=== PATIENT | female | born 1995 | race Caucasian/White ===

== ENCOUNTER 2024-02-01 13:06 | Outpatient (AMB) | payer BC, SELFPAY ==
[2024-02-01 13:15] VITALS: BP 128/70; PULSE 89; O2SAT 100; BMI 34.1
--- NOTE | 2024-02-01 13:15 | MHC.OFFVIS ---
Vital Signs 02/01/24 13:15 Height 5 ft 5 in Weight 205 lb BMI 34.1 BP 128/70 Blood Pressure Location Lt brachial Position Sitting Pulse 89 Pulse Source Pulse Oximeter Pulse Oximetry (%) 100 Oxygen Delivery Method Room Air Intake Visit Reasons: Somnolence Roving Tester Laboratory Required: No Allergies Penicillins Adverse Reaction (Severe, Verified 02/01/24 13:19) Hives Sulfa Drugs Adverse Reaction (Severe, Uncoded 02/01/24 13:19) Hives HPI Comments Details: The patient is here for pulmonary evaluation. The patient is 28-year-old woman with a known history of asthma presenting with worsening daytime drowsiness. 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 As a child she did require surgery. It did help some of that point but still had some difficulty opening her mouth. 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 She has significant snoring documented by her significant other. The patient also has headaches in the morning. She wakes up tired with an elevated [place] score of 11/24. The patient has never had a sleep study. At this point she needs a sleep study because she likely has significant sleep apnea due to her anatomy. In addition to that she does have history of asthma. She does have a rescue inhaler does not required any maintenance medication at this time. will plan to request a home sleep study at this time. [facility] Medical History (Updated 02/01/24 @ 20:40 by Kenny Zhao MD) Insomnia Asthma VALENTIN (obstructive sleep apnea) Social History (Updated 02/01/24 @ 13:21 by ZIYAD Liriano) Patient Tobacco Use Status: Never used Tobacco Review of Systems Const Reports daytime sleepiness, Reports difficulty sleeping, Reports headache(s) and Reports snoring Eyes Reports no additional complaints ENT Reports headache(s) Card Denies chest pain Resp Reports snoring and Denies wheezing GI Reports no additional complaints Musc Reports no additional complaints Skin/Breast Denies rash Neuro Reports no additional complaints and Reports headache(s) Aller/Immun Denies wheezing Physical Exam Vital Signs: Last Vital Signs Pulse 89 02/01/24 13:15 BP 128/70 02/01/24 13:15 Pulse Ox 100 02/01/24 13:15 Oxygen Delivery Method Room Air 02/01/24 13:15 BMI result Body Mass Index 34.1 Const General: healthy appearing HEENT Head: Yes normocephalic Mouth: other (Rethronathia 2-3 mm; mallampati 3) Neck Neck: Yes supple Chest Chest palpation & inspection: normal inspection of the chest Resp Effort & Inspection: normal respiratory effort Auscultation: clear to auscultation bilaterally Cardio Heart sounds: S1 normal heart sound present, S2 normal heart sound present and Murmur heart sound present systolic soft and I/ GI Palpation (GI): Soft to palpation Skin General skin exam: no rashes or lesions noted Extrem General: Yes no clubbing, cyanosis or edema Assessment & Plan Assessment & Plan (1) VALENTIN (obstructive sleep apnea): Code(s): G47.33 - Obstructive sleep apnea (adult) (pediatric) Category: Medical (2) Asthma: Code(s): J45.909 - Unspecified asthma, uncomplicated Category: Medical Qualifiers: Asthma severity: mild Asthma persistence: intermittent Asthma complication type: uncomplicated Qualified Code(s): J45.20 - Mild intermittent asthma, uncomplicated (3) Insomnia: Code(s): G47.00 - Insomnia, unspecified Category: Medical Qualifiers: Insomnia type: primary Qualified Code(s): F51.01 - Primary insomnia Plan Home sleep study consider sleep aid CHELSEY as needed F/U 2-3 months Orders: Orders RT home sleep study Today G47.33 - Obstructive sleep apnea (adult) (pediatric)
== END 2024-02-01 13:39 | disposition home or self-care (01) ==
LOC: HO.HPS 13:07
PROVIDERS: PCP Physician Assistant Medical; Visit Provider Hospitalist
DX: G47.33 Obstructive sleep apnea (adult) (pediatric) (principal); J45.20 Mild intermittent asthma, uncomplicated; F51.01 Primary insomnia
CPT/HCPCS: 99204

== ENCOUNTER → 2024-02-01 13:07 | Outpatient (BNVA) | payer BC, SELFPAY | PROVIDERS: PCP Physician Assistant Medical; Visit Provider Hospitalist ==

== ENCOUNTER → 2024-03-10 14:45 | Outpatient (REF) | payer BC, SELFPAY | LOC: HO.SL 14:45 | PROVIDERS: PCP Family Medicine; Visit Provider Hospitalist | DX: G47.33 Obstructive sleep apnea (adult) (pediatric) (principal) | CPT/HCPCS: 95806 ==

== ENCOUNTER → 2024-03-10 14:54 | Outpatient (BNV) | payer BC, SELFPAY | PROVIDERS: PCP Family Medicine; Visit Provider Internal Medicine | DX: G47.10 Hypersomnia, unspecified (principal) | CPT/HCPCS: 95806 ==

== ENCOUNTER 2025-02-01 06:28 | Outpatient (REF) | payer BC, SELFPAY ==
--- OUTSIDE RECORDS SUMMARY | 2025-02-01 06:32 | XMS_ITS ---
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
--- OUTSIDE RECORDS SUMMARY | 2025-02-01 06:32 | XMS_ITS | Patient Health Record ---
Author Organization [facility] Address [address] [place] [address] Care Team Providers Care Customer Contact Specialist Name Role Phone SUYAPA SANDOVAL Unavailable [phone] ALLERGIES Allergen (clinical drug ingredient) Drug/Non Drug Allergy documented on EMR Reaction Allergy Type Onset Date Status Penicillin hives Drug Allergy Active Substance with sulfonamide structure and antibacterial mechanism of action (substance) Sulfa Antibiotics hives Drug Allergy Active RESULTS Component Value Reference Range Notes VITAMIN D 25 HYDROXY Reviewed date:08/29/2024 07:57:14 AM Interpretation: Performing Lab: Notes/Report: Vit D, 25-Hydroxy 17.2 30.0-80.0 ng/mL THYROXINE FREE Reviewed date:08/29/2024 07:57:14 AM Interpretation: Performing Lab: Notes/Report: Free T4 1.38 0.70-1.80 ng/dL THYROID STIMULATING HORMONE Reviewed date:08/29/2024 07:57:14 AM Interpretation: Performing Lab: Notes/Report: TSH 1.71 0.40-4.00 mcIU/mL TRIIODOTHYRONINE FREE Reviewed date:08/29/2024 07:57:14 AM Interpretation: Performing Lab: Notes/Report: T3, Free 294 230-420 pcg/dL VITAMIN B12 Reviewed date:08/29/2024 07:56:45 AM Interpretation: Performing Lab: Notes/Report: Vitamin B-12 379 250-900 pcg/mL THYROGLOBULIN ANTIBODY Reviewed date:09/05/2024 08:01:27 AM Interpretation: Performing Lab: Notes/Report: Antithyroglobulin Ab <15.0 <=60.0 I Unit/mL THYROID PEROXIDASE ANTIBODY Reviewed date:09/05/2024 08:01:27 AM Interpretation: Performing Lab: Notes/Report: Thyroid Peroxidase Ab 110.0 <=60.0 I Unit/mL XR HAND 3+ VIEWS RIGHT Reviewed date:09/29/2024 02:39:06 PM Interpretation: Performing Lab: Notes/Report: Note See Note [facility], a member of [facility] Patient Name: JENNIFER GEORGE Date of : 1995 Reason for Exam: right hand pain Exam Date: 09/28/2024 [id number] EST Report Status: Final Ordering Provider: SABINA GARCIA PCP: CHANEL GARNER Date of Visit:09/28/2024 Reason for visit: ri ght hand pain Views: AP, lateral, oblique right hand Comparison: None Findings: No fractur es, dislocation or lytic lesions. No significant arthritis. No calcifications Impression: Normal r ight hand radiograph REASON FOR REFERRAL No Information MEDICATIONS Medication SIG (Take, Route, Frequency, Duration) Notes Start Date End Date Status Albuterol Sulfate HFA 108 (90 Base) MCG/ACT Inhalation for 90 Days Active Drospiren-Eth Estrad-Levomefol 3-0.02-0.451 MG TAKE 1 TABLET BY MOUTH EVERY DAY Oral for 84 Days Active buPROPion HCl ER (XL) 300 MG TAKE 1 TABL ET BY MOUTH EVERY DAY IN THE MORNING FOR 90 DAYS for 90 days Active buPROPion HCl ER (XL) 150 MG TAKE 1 TABL ET BY MOUTH EVERY DAY IN THE MORNING FOR 90 DAYS for 90 days Active Levothyroxine Sodium 75 MCG TAKE 1 TABLE T BY MOUTH EVERY DAY IN THE MORNING ON EMPTY STOMACH for 90 Active Cetirizine HCl 10 MG 1 tablet Orally Onc e a day Active SOCIAL HISTORY Tobacco Use: Social History Observation Description Date Details (start date - stop date) Never Smoker NA - NA Sex Assigned At : Social History Observation Description Sex Assigned At Unknown Tobacco Use/Smoking Question Answer Notes Are you a nonsmoker Alcohol Screen (Audit-C) Question Answer Notes Did you have a drink contain ing alcohol in the past year? Yes How often did you have a dri nk containing alcohol in the past year? 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 ETOH: Rare/social Drug Use: none PROBLEMS Problem Type ICD Code Onset Dates Problem Status W/U Status Risk SNOMED Code Notes Problem Vitamin D deficiency, unspecified (E55.9) Active confirmed Vitamin D deficiency (78667344) Problem Hyperlipidemia, unspecified (E78.5) Active confirmed Hyperlipidemia (83962463) Problem Anxiety (F41.9) Active confirmed Anxiet y (62748907) Problem Adult general medical exam (Z00.00) Active confirmed Adult health examination (837744515) Problem Hypothyroidism, unspecified type (E03.9) Active confirmed 59474785 Problem Seasonal allergies (J30.2) Active confirmed Seasonal allerg y (621441943) Problem Vitamin D deficiency (E55.9) Active confirmed 30638595 Problem Diabetes mellitus screening (Z13.1) Active confirmed Diabetes mellit us screening (301772728) Problem Obesity (BMI 30-39.9) (E66.9) Active confirmed Obesity (399038055) Problem Sleep apnea in adult (G47.30) Active confirmed Sleep apnea (67176236) Problem Anemia due to vitamin B12 deficiency, unspecified B12 deficiency type (D51.9) Active confirmed 80551503 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 Juan's disease (77432436) 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) Active confirmed Jaun's thyroiditis (32196134) VITAL SIGNS Heart Rate 99 /min 01/13/2025 Blood pressure diastolic 80 mm Hg 01/13/2025 Oximetry 99 % 01/13/2025 Height 65 in 01/13/2025 Blood pressure systolic 126 mm Hg 01/13/2025 Weight 216.4 lbs 01/13/2025 BMI 36.01 kg/m2 01/13/2025 Encounters Encounter Location Date Provider Diagnosis [facility] [address] [place] [address] 03/04/2024 SUYAPA SANDOVAL [facility] [address] [place] [address] 08/01/2024 SUYAPA SANDOVAL [facility] [address] [place] [address] 12/09/2024 SUYAPA SANDOVAL [facility] [address] [place] [address] 08/26/2024 SUYAPA SANDOVAL Headache, unspecifie d R51.9 ; Hypothyroidism, unspecified type E03.[address] [facility] [address] [facility] [address] [place] [address] 01/13/2025 SUYAPA SANDOVAL Adult general medica l exam Z00.00 ; Hyperlipidemia, unspecified E78.5 ; Vitamin D deficiency, unspecified E55.9 ; Hypothyroidism, unspecified type E03.9 ; Diabetes mellitus screening Z13.1 and Anemia due to vitamin B12 deficiency, unspecified B12 deficiency type D51.[address] [facility] [place] [address] 07/05/2024 SUYAPA LORI [address] [place] [address] 09/19/[address] [facility] [address] [place] [address] 09/21/[address] [facility] [address] [place] [address] 12/07/2024 SUYAPA RUANOA [address] [place] [address] 12/07/[address] [facility] [address] [place] [address] 06/01/[address] [facility] [address] [place] [address] 06/23/[address] [facility] [address] [place] [address] 07/05/[address] [facility] [address] [place] [address] 07/05/[address] [facility] [address] [place] [address] 07/05/[address] [facility] [address] [place] [address] 07/05/[address] [facility] [address] [place] [address] 07/18/[address] [facility] [address] [place] [address] 08/26/2024 SUYAPA SANDOVAL Hypothyroidism, unspecified type E03.9 ; Headache, unspecified R51.9 ; Low iron E61.1 and Anemia due to vitamin B12 deficiency, unspecified B12 deficiency type D51.9 [facility] [address] [facility] [address] 09/19/2024 SUYAPA SANDOVAL [facility] [address] [facility] [address] 09/28/2024 SUYAPA SANDOVAL [facility] [address] [facility] [address] 09/28/2024 SUYAPA SANDOVAL [facility] [address] [facility] [address] 11/02/2024 SUYAPA SANDOVAL [facility] [address] [facility] [place] [address] 12/17/2024 SUYAPA SANDOVAL ASSESSMENTS Encounter Date Diagnosis Assessment Notes Treatment Notes Treatment Clinical Notes Section Notes 01/13/2025 Hyperlipidemia , unspecified (ICD-10 - E78.5) #Adult general medical exam: Reviewed medical history, hospitalizations, surgical history, and medications. All UTD. #Hyperlipidemia: Lipid panel will be rechecked in 6-12 months or sooner if clinical concerns arise. If lifestyle interventions are insufficient, pharmacologic therapy may be considered based on cardiovascular risk factors. #Obesity: Weight management consult has been scheduled. #Hypothyroidism: Will recheck labs. #Vaccines: UTD #Vitamin D Deficiency Will recheck labs. Patient seen and examined. Comprehensive discussion was done on the following. 1. Nutrition: It is important to follow a healthy diet based on lots of vegetables and legumes and good fat. Avoid processed food and processed carbohydrates. Learn to prepare your own meals. Learn to read labels and avoid high fructose corn syrup, processed chemicals added to increase shelf life and preprepared meals. Avoid fast foods. Learn to eat slowly and plan meals for a week. Try to count calories and be mindful off daily calorie intake. Get into the habit of keeping an eye on your weight by using an appropriate scale. Learn to log exercise and discussed fitness Apps like [employer] which can help keep log off calories taken versus calories burned. Local food should be preferred. Discussed Dirty Dozen Versus Clean Fifteen. Discussed healthy supplements like fish oil, Tumeric, Curcumin, Melatonin, Resveratrol, Probiotics, Vitamin-D, Alpha-Lipoic acid, Vitamin-D and coconut oil. 2. It is important to exercise regularly. Is a good habit to walk at least 30-45 minutes a day. Gentle weightlifting with standard precautions to protect the back. Finding activity like cycling or hiking and get into the habit of engaging in it. Stretching before and after the exercises important. It is also important to contact me if there are any problems like shortness of breath, chest pain, back pain and joint or muscle pain associated with the exercise. 3. Discussed age appropriate screening guidelines. Colonoscopy needs to start at age 50 with stool for occult blood as appropriate. There is a new test that can test for genetic abnormalities in the stool sample. This would not replace a colonoscopy but could be used as a screening tool for patients who do not want a colonoscopy. We discussed the importance of early detection of colon cancer. 4. Discussed current guidelines with respect to breast examination, mammogram and pap smear for early detection of breast and cervical cancer. Patient advised to follow up with these appointments. 5. Discussed safe driving and no use of smart phone while driving 6. Age-appropriate immunizations were discussed. A tetanus booster is needed every 10 years. Flu vaccine is recommended every year just before the start of the flu season. Shingles vaccine is recommended after age 50 but not all insurances cover it.Pneumonia vaccine is given after age 65 unless there are certain comorbidities for which it is started earlier. 7. Diagnostic labs were discussed. These could include CBC CMP and lipids with fasting blood glucose and insulin levels. Vitamin D and hemoglobin A1c testing might be appropriate. Case discussed with collaborating physician Sadie Garner who reviewed the assessment and plan. Chart, medications, labs, vital signs reviewed. Dictation was accomplished with the use of [employer] voice recognition software, prone to medical misidentifications and grammatical errors. This is unintentional and the practitioner does try to identify and correct these, but some could still be present. Please do not hesitate to contact practitioner for clarification. All questions answered to patients satisfaction. Patient verbalized understanding of diagnosis and treatments explained. To call sooner prior to next visit it any questions/concerns arise. 01/13/2025 Adult general medical exam (ICD-10 - Z00.00) #Adult general medical exam: Reviewed medical history, hospitalizations, surgical history, and medications. All UTD. #Hyperlipidemia: Lipid panel will be rechecked in 6-12 months or sooner if clinical concerns arise. If lifestyle interventions are insufficient, pharmacologic therapy may be considered based on cardiovascular risk factors. #Obesity: Weight management consult has been scheduled. #Hypothyroidism: Will recheck labs. #Vaccines: UTD #Vitamin D Deficiency Will recheck labs. Patient seen and examined. Comprehensive discussion was done on the following. 1. Nutrition: It is important to follow a healthy diet based on lots of vegetables and legumes and good fat. Avoid processed food and processed carbohydrates. Learn to prepare your own meals. Learn to read labels and avoid high fructose corn syrup, processed chemicals added to increase shelf life and preprepared meals. Avoid fast foods. Learn to eat slowly and plan meals for a week. Try to count calories and be mindful off daily calorie intake. Get into the habit of keeping an eye on your weight by using an appropriate scale. Learn to log exercise and discussed fitness Apps like [employer] which can help keep log off calories taken versus calories burned. Local food should be preferred. Discussed Dirty Dozen Versus Clean Fifteen. Discussed healthy supplements like fish oil, Tumeric, Curcumin, Melatonin, Resveratrol, Probiotics, Vitamin-D, Alpha-Lipoic acid, Vitamin-D and coconut oil. 2. It is important to exercise regularly. Is a good habit to walk at least 30-45 minutes a day. Gentle weightlifting with standard precautions to protect the back. Finding activity like cycling or hiking and get into the habit of engaging in it. Stretching before and after the exercises important. It is also important to contact me if there are any problems like shortness of breath, chest pain, back pain and joint or muscle pain associated with the exercise. 3. Discussed age appropriate screening guidelines. Colonoscopy needs to start at age 50 with stool for occult blood as appropriate. There is a new test that can test for genetic abnormalities in the stool sample. This would not replace a colonoscopy but could be used as a screening tool for patients who do not want a colonoscopy. We discussed the importance of early detection of colon cancer. 4. Discussed current guidelines with respect to breast examination, mammogram and pap smear for early detection of breast and cervical cancer. Patient advised to follow up with these appointments. 5. Discussed safe driving and no use of smart phone while driving 6. Age-appropriate immunizations were discussed. A tetanus booster is needed every 10 years. Flu vaccine is recommended every year just before the start of the flu season. Shingles vaccine is recommended after age 50 but not all insurances cover it.Pneumonia vaccine is given after age 65 unless there are certain comorbidities for which it is started earlier. 7. Diagnostic labs were discussed. These could include CBC CMP and lipids with fasting blood glucose and insulin levels. Vitamin D and hemoglobin A1c testing might be appropriate. Case discussed with collaborating physician Sadie Garner who reviewed the assessment and plan. Chart, medications, labs, vital signs reviewed. Dictation was accomplished with the use of [employer] voice recognition software, prone to medical misidentifications and grammatical errors. This is unintentional and the practitioner does try to identify and correct these, but some could still be present. Please do not hesitate to contact practitioner for clarification. All questions answered to patients satisfaction. Patient verbalized understanding of diagnosis and treatments explained. To call sooner prior to next visit it any questions/concerns arise. 08/26/2024 Hypothyroidism , unspecified type (ICD-10 - E03.9) 08/26/2024 Hypothyroidism , unspecified type (ICD-10 - E03.9) Jennifer is a 28 year old female for follow up #Juan Disease: TSH/T3/4 normal. Check thyroid US. #Anxiety: Buproprion HCL extended release tab 450 mg po daily # Obesity: Lost 20 lbs since last visit. Congratulated and encouraged to continue # Headaches. ? Menstural or VALENTIN. Declines sleep study at this time. Will try Tompamax 25 mg HS. Discussed possible sleepiness and inc risk of kidney stones Case discussed with collaborating physician Sadie Garner who reviewed the assessment and plan. Chart, medications, labs, vital signs reviewed. Dictation was accomplished with the use of [employer] voice recognition software, prone to medical misidentifications and grammatical errors. This is unintentional and the practitioner does try to identify and correct these, but some could still be present. Please do not hesitate to contact practitioner for clarification. All questions answered to patients satisfaction. Patient verbalized understanding of diagnosis and treatments explained. To call sooner prior to next visit it any questions/concerns arise. 08/26/2024 Headache, unspecified (ICD-10 - R51.9) Jennifer is a 28 year old female for follow up #Juan Disease: TSH/T3/4 normal. Check thyroid US. #Anxiety: Buproprion HCL extended release tab 450 mg po daily # Obesity: Lost 20 lbs since last visit. Congratulated and encouraged to continue # Headaches. ? Menstural or VALENTIN. Declines sleep study at this time. Will try Tompamax 25 mg HS. Discussed possible sleepiness and inc risk of kidney stones Case discussed with collaborating physician Sadie Garner who reviewed the assessment and plan. Chart, medications, labs, vital signs reviewed. Dictation was accomplished with the use of [employer] voice recognition software, prone to medical misidentifications and grammatical errors. This is unintentional and the practitioner does try to identify and correct these, but some could still be present. Please do not hesitate to contact practitioner for clarification. All questions answered to patients satisfaction. Patient verbalized understanding of diagnosis and treatments explained. To call sooner prior to next visit it any questions/concerns arise. 08/26/2024 Headache, unspecified (ICD-10 - R51.9) 08/26/2024 Anxiety (ICD-10 - F41.9) Jennifer is a 28 year old female for follow up #Juan Disease: TSH/T3/4 normal. Check thyroid US. #Anxiety: Buproprion HCL extended release tab 450 mg po daily # Obesity: Lost 20 lbs since last visit. Congratulated and encouraged to continue # Headaches. ? Menstural or VALENTIN. Declines sleep study at this time. Will try Tompamax 25 mg HS. Discussed possible sleepiness and inc risk of kidney stones Case discussed with collaborating physician Sadie Garner who reviewed the assessment and plan. Chart, medications, labs, vital signs reviewed. Dictation was accomplished with the use of [employer] voice recognition software, prone to medical misidentifications and grammatical errors. This is unintentional and the practitioner does try to identify and correct these, but some could still be present. Please do not hesitate to contact practitioner for clarification. All questions answered to patients satisfaction. Patient verbalized understanding of diagnosis and treatments explained. To call sooner prior to next visit it any questions/concerns arise. 01/13/2025 Vitamin D deficiency, unspecified (ICD-10 - E55.9) #Adult general medical exam: Reviewed medical history, hospitalizations, surgical history, and medications. All UTD. #Hyperlipidemia: Lipid panel will be rechecked in 6-12 months or sooner if clinical concerns arise. If lifestyle interventions are insufficient, pharmacologic therapy may be considered based on cardiovascular risk factors. #Obesity: Weight management consult has been scheduled. #Hypothyroidism: Will recheck labs. #Vaccines: UTD #Vitamin D Deficiency Will recheck labs. Patient seen and examined. Comprehensive discussion was done on the following. 1. Nutrition: It is important to follow a healthy diet based on lots of vegetables and legumes and good fat. Avoid processed food and processed carbohydrates. Learn to prepare your own meals. Learn to read labels and avoid high fructose corn syrup, processed chemicals added to increase shelf life and preprepared meals. Avoid fast foods. Learn to eat slowly and plan meals for a week. Try to count calories and be mindful off daily calorie intake. Get into the habit of keeping an eye on your weight by using an appropriate scale. Learn to log exercise and discussed fitness Apps like [employer] which can help keep log off calories taken versus calories burned. Local food should be preferred. Discussed Dirty Dozen Versus Clean Fifteen. Discussed healthy supplements like fish oil, Tumeric, Curcumin, Melatonin, Resveratrol, Probiotics, Vitamin-D, Alpha-Lipoic acid, Vitamin-D and coconut oil. 2. It is important to exercise regularly. Is a good habit to walk at least 30-45 minutes a day. Gentle weightlifting with standard precautions to protect the back. Finding activity like cycling or hiking and get into the habit of engaging in it. Stretching before and after the exercises important. It is also important to contact me if there are any problems like shortness of breath, chest pain, back pain and joint or muscle pain associated with the exercise. 3. Discussed age appropriate screening guidelines. Colonoscopy needs to start at age 50 with stool for occult blood as appropriate. There is a new test that can test for genetic abnormalities in the stool sample. This would not replace a colonoscopy but could be used as a screening tool for patients who do not want a colonoscopy. We discussed the importance of early detection of colon cancer. 4. Discussed current guidelines with respect to breast examination, mammogram and pap smear for early detection of breast and cervical cancer. Patient advised to follow up with these appointments. 5. Discussed safe driving and no use of smart phone while driving 6. Age-appropriate immunizations were discussed. A tetanus booster is needed every 10 years. Flu vaccine is recommended every year just before the start of the flu season. Shingles vaccine is recommended after age 50 but not all insurances cover it.Pneumonia vaccine is given after age 65 unless there are certain comorbidities for which it is started earlier. 7. Diagnostic labs were discussed. These could include CBC CMP and lipids with fasting blood glucose and insulin levels. Vitamin D and hemoglobin A1c testing might be appropriate. Case discussed with collaborating physician Sadie Garner who reviewed the assessment and plan. Chart, medications, labs, vital signs reviewed. Dictation was accomplished with the use of [employer] voice recognition software, prone to medical misidentifications and grammatical errors. This is unintentional and the practitioner does try to identify and correct these, but some could still be present. Please do not hesitate to contact practitioner for clarification. All questions answered to patients satisfaction. Patient verbalized understanding of diagnosis and treatments explained. To call sooner prior to next visit it any questions/concerns arise. 01/13/2025 Hypothyroidism , unspecified type (ICD-10 - E03.9) #Adult general medical exam: Reviewed medical history, hospitalizations, surgical history, and medications. All UTD. #Hyperlipidemia: Lipid panel will be rechecked in 6-12 months or sooner if clinical concerns arise. If lifestyle interventions are insufficient, pharmacologic therapy may be considered based on cardiovascular risk factors. #Obesity: Weight management consult has been scheduled. #Hypothyroidism: Will recheck labs. #Vaccines: UTD #Vitamin D Deficiency Will recheck labs. Patient seen and examined. Comprehensive discussion was done on the following. 1. Nutrition: It is important to follow a healthy diet based on lots of vegetables and legumes and good fat. Avoid processed food and processed carbohydrates. Learn to prepare your own meals. Learn to read labels and avoid high fructose corn syrup, processed chemicals added to increase shelf life and preprepared meals. Avoid fast foods. Learn to eat slowly and plan meals for a week. Try to count calories and be mindful off daily calorie intake. Get into the habit of keeping an eye on your weight by using an appropriate scale. Learn to log exercise and discussed fitness Apps like [employer] which can help keep log off calories taken versus calories burned. Local food should be preferred. Discussed Dirty Dozen Versus Clean Fifteen. Discussed healthy supplements like fish oil, Tumeric, Curcumin, Melatonin, Resveratrol, Probiotics, Vitamin-D, Alpha-Lipoic acid, Vitamin-D and coconut oil. 2. It is important to exercise regularly. Is a good habit to walk at least 30-45 minutes a day. Gentle weightlifting with standard precautions to protect the back. Finding activity like cycling or hiking and get into the habit of engaging in it. Stretching before and after the exercises important. It is also important to contact me if there are any problems like shortness of breath, chest pain, back pain and joint or muscle pain associated with the exercise. 3. Discussed age appropriate screening guidelines. Colonoscopy needs to start at age 50 with stool for occult blood as appropriate. There is a new test that can test for genetic abnormalities in the stool sample. This would not replace a colonoscopy but could be used as a screening tool for patients who do not want a colonoscopy. We discussed the importance of early detection of colon cancer. 4. Discussed current guidelines with respect to breast examination, mammogram and pap smear for early detection of breast and cervical cancer. Patient advised to follow up with these appointments. 5. Discussed safe driving and no use of smart phone while driving 6. Age-appropriate immunizations were discussed. A tetanus booster is needed every 10 years. Flu vaccine is recommended every year just before the start of the flu season. Shingles vaccine is recommended after age 50 but not all insurances cover it.Pneumonia vaccine is given after age 65 unless there are certain comorbidities for which it is started earlier. 7. Diagnostic labs were discussed. These could include CBC CMP and lipids with fasting blood glucose and insulin levels. Vitamin D and hemoglobin A1c testing might be appropriate. Case discussed with collaborating physician Sadie Garner who reviewed the assessment and plan. Chart, medications, labs, vital signs reviewed. Dictation was accomplished with the use of [employer] voice recognition software, prone to medical misidentifications and grammatical errors. This is unintentional and the practitioner does try to identify and correct these, but some could still be present. Please do not hesitate to contact practitioner for clarification. All questions answered to patients satisfaction. Patient verbalized understanding of diagnosis and treatments explained. To call sooner prior to next visit it any questions/concerns arise. 08/26/2024 Low iron (ICD-10 - E61.1) 08/26/2024 Anemia due to vitamin B12 deficiency, unspecified B12 deficiency type (ICD-10 - D51.9) 01/13/2025 Diabetes mellitus screening (ICD-10 - Z13.1) #Adult general medical exam: Reviewed medical history, hospitalizations, surgical history, and medications. All UTD. #Hyperlipidemia: Lipid panel will be rechecked in 6-12 months or sooner if clinical concerns arise. If lifestyle interventions are insufficient, pharmacologic therapy may be considered based on cardiovascular risk factors. #Obesity: Weight management consult has been scheduled. #Hypothyroidism: Will recheck labs. #Vaccines: UTD #Vitamin D Deficiency Will recheck labs. Patient seen and examined. Comprehensive discussion was done on the following. 1. Nutrition: It is important to follow a healthy diet based on lots of vegetables and legumes and good fat. Avoid processed food and processed carbohydrates. Learn to prepare your own meals. Learn to read labels and avoid high fructose corn syrup, processed chemicals added to increase shelf life and preprepared meals. Avoid fast foods. Learn to eat slowly and plan meals for a week. Try to count calories and be mindful off daily calorie intake. Get into the habit of keeping an eye on your weight by using an appropriate scale. Learn to log exercise and discussed fitness Apps like [employer] which can help keep log off calories taken versus calories burned. Local food should be preferred. Discussed Dirty Dozen Versus Clean Fifteen. Discussed healthy supplements like fish oil, Tumeric, Curcumin, Melatonin, Resveratrol, Probiotics, Vitamin-D, Alpha-Lipoic acid, Vitamin-D and coconut oil. 2. It is important to exercise regularly. Is a good habit to walk at least 30-45 minutes a day. Gentle weightlifting with standard precautions to protect the back. Finding activity like cycling or hiking and get into the habit of engaging in it. Stretching before and after the exercises important. It is also important to contact me if there are any problems like shortness of breath, chest pain, back pain and joint or muscle pain associated with the exercise. 3. Discussed age appropriate screening guidelines. Colonoscopy needs to start at age 50 with stool for occult blood as appropriate. There is a new test that can test for genetic abnormalities in the stool sample. This would not replace a colonoscopy but could be used as a screening tool for patients who do not want a colonoscopy. We discussed the importance of early detection of colon cancer. 4. Discussed current guidelines with respect to breast examination, mammogram and pap smear for early detection of breast and cervical cancer. Patient advised to follow up with these appointments. 5. Discussed safe driving and no use of smart phone while driving 6. Age-appropriate immunizations were discussed. A tetanus booster is needed every 10 years. Flu vaccine is recommended every year just before the start of the flu season. Shingles vaccine is recommended after age 50 but not all insurances cover it.Pneumonia vaccine is given after age 65 unless there are certain comorbidities for which it is started earlier. 7. Diagnostic labs were discussed. These could include CBC CMP and lipids with fasting blood glucose and insulin levels. Vitamin D and hemoglobin A1c testing might be appropriate. Case discussed with collaborating physician Sadie Garner who reviewed the assessment and plan. Chart, medications, labs, vital signs reviewed. Dictation was accomplished with the use of [employer] voice recognition software, prone to medical misidentifications and grammatical errors. This is unintentional and the practitioner does try to identify and correct these, but some could still be present. Please do not hesitate to contact practitioner for clarification. All questions answered to patients satisfaction. Patient verbalized understanding of diagnosis and treatments explained. To call sooner prior to next visit it any questions/concerns arise. 01/13/2025 Anemia due to vitamin B12 deficiency, unspecified B12 deficiency type (ICD-10 - D51.9) #Adult general medical exam: Reviewed medical history, hospitalizations, surgical history, and medications. All UTD. #Hyperlipidemia: Lipid panel will be rechecked in 6-12 months or sooner if clinical concerns arise. If lifestyle interventions are insufficient, pharmacologic therapy may be considered based on cardiovascular risk factors. #Obesity: Weight management consult has been scheduled. #Hypothyroidism: Will recheck labs. #Vaccines: UTD #Vitamin D Deficiency Will recheck labs. Patient seen and examined. Comprehensive discussion was done on the following. 1. Nutrition: It is important to follow a healthy diet based on lots of vegetables and legumes and good fat. Avoid processed food and processed carbohydrates. Learn to prepare your own meals. Learn to read labels and avoid high fructose corn syrup, processed chemicals added to increase shelf life and preprepared meals. Avoid fast foods. Learn to eat slowly and plan meals for a week. Try to count calories and be mindful off daily calorie intake. Get into the habit of keeping an eye on your weight by using an appropriate scale. Learn to log exercise and discussed fitness Apps like [employer] which can help keep log off calories taken versus calories burned. Local food should be preferred. Discussed Dirty Dozen Versus Clean Fifteen. Discussed healthy supplements like fish oil, Tumeric, Curcumin, Melatonin, Resveratrol, Probiotics, Vitamin-D, Alpha-Lipoic acid, Vitamin-D and coconut oil. 2. It is important to exercise regularly. Is a good habit to walk at least 30-45 minutes a day. Gentle weightlifting with standard precautions to protect the back. Finding activity like cycling or hiking and get into the habit of engaging in it. Stretching before and after the exercises important. It is also important to contact me if there are any problems like shortness of breath, chest pain, back pain and joint or muscle pain associated with the exercise. 3. Discussed age appropriate screening guidelines. Colonoscopy needs to start at age 50 with stool for occult blood as appropriate. There is a new test that can test for genetic abnormalities in the stool sample. This would not replace a colonoscopy but could be used as a screening tool for patients who do not want a colonoscopy. We discussed the importance of early detection of colon cancer. 4. Discussed current guidelines with respect to breast examination, mammogram and pap smear for early detection of breast and cervical cancer. Patient advised to follow up with these appointments. 5. Discussed safe driving and no use of smart phone while driving 6. Age-appropriate immunizations were discussed. A tetanus booster is needed every 10 years. Flu vaccine is recommended every year just before the start of the flu season. Shingles vaccine is recommended after age 50 but not all insurances cover it.Pneumonia vaccine is given after age 65 unless there are certain comorbidities for which it is started earlier. 7. Diagnostic labs were discussed. These could include CBC CMP and lipids with fasting blood glucose and insulin levels. Vitamin D and hemoglobin A1c testing might be appropriate. Case discussed with collaborating physician Sadie Garner who reviewed the assessment and plan. Chart, medications, labs, vital signs reviewed. Dictation was accomplished with the use of [employer] voice recognition software, prone to medical misidentifications and grammatical errors. This is unintentional and the practitioner does try to identify and correct these, but some could still be present. Please do not hesitate to contact practitioner for clarification. All questions answered to patients satisfaction. Patient verbalized understanding of diagnosis and treatments explained. To call sooner prior to next visit it any questions/concerns arise. PLAN OF TREATMENT Pending Test Test Name Order Date TRANSFERRIN 09/18/2023 LIPID PANEL, STANDARD 01/13/2025 IRON, TIBC AND FERRITIN PANEL 09/18/2023 COMPREHENSIVE METABOLIC PANEL 01/13/2025 CBC (INCLUDES DIFF/PLT) 01/13/2025 URINALYSIS, COMPLETE 01/13/2025 VITAMIN B12 01/13/2025 VITAMIN B12 08/26/2024 T4, FREE 08/26/2024 T4, FREE 09/18/2023 TSH 08/26/2024 T3, FREE 08/26/2024 VITAMIN D,25-OH,TOTAL,IA 08/26/2024 VITAMIN D,25-OH,TOTAL,IA 01/13/2025 US Thyroid 08/26/2024 Hemoglobin [id number] 01/13/2025 TSH+T3+Free T4+T3 Free 01/13/2025 Next Appt Details Provider Name:SUYAPA LORI, 02/02/2025 02:30:00 PM, [address], [place], [address], Insurance Providers Payer Name Payer Address Payer Phone Subscriber Number Group Number Insured Name Patient Relationship to Insured Coverage Start Date Coverage End Date [facility] [address] [place] [address] [id number] JENNIFER GEORGE Self - patient is the insured 1 MEDICAL (GENERAL) HISTORY Medical History History ICD Code 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
--- OUTSIDE RECORDS SUMMARY | 2025-02-01 06:32 | XMS_ITS ---
Author Organization [facility] Address [address] [place] [address] Care Team Providers Care Real Estate Job Titles Name Role Phone SUYAPA SANDOVAL Unavailable [phone] ALLERGIES Allergen (clinical drug ingredient) Drug/Non Drug Allergy documented on EMR Reaction Allergy Type Onset Date Status Penicillin hives Drug Allergy Active Substance with sulfonamide structure and antibacterial mechanism of action (substance) Sulfa Antibiotics hives Drug Allergy Active REASON FOR VISIT pt is here for annual checkup-no labs done MEDICATIONS Medication SIG (Take, Route, Frequency, Duration) Notes Start Date End Date Status Albuterol Sulfate HFA 108 (90 Base) MCG/ACT Inhalation for 90 Days Active Drospiren-Eth Estrad-Levomefol 3-0.02-0.451 MG TAKE 1 TABLET BY MOUTH EVERY DAY Oral for 84 Days Active buPROPion HCl ER (XL) 150 MG TAKE 1 TABL ET BY MOUTH EVERY DAY IN THE MORNING FOR 90 DAYS for 90 days Active Cetirizine HCl 10 MG 1 tablet Orally Onc e a day Active buPROPion HCl ER (XL) 300 MG TAKE 1 TABL ET BY MOUTH EVERY DAY IN THE MORNING FOR 90 DAYS for 90 days Active Levothyroxine Sodium 75 MCG TAKE 1 TABLE T BY MOUTH EVERY DAY IN THE MORNING ON EMPTY STOMACH for 90 Active SOCIAL HISTORY Tobacco Use: Social History Observation Description Date Details (start date - stop date) Never Smoker NA - NA Sex Assigned At : Social History Observation Description Sex Assigned At Unknown Tobacco Use/Smoking Question Answer Notes Are you a nonsmoker 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 ETOH: Rare/social Drug Use: none VITAL SIGNS Blood pressure systolic 126 mm Hg 01/14/20 25 Blood pressure diastolic 80 mm Hg 025 Heart Rate 99 /min 01/13/2025 Height 65 in 01/13/2025 Weight 216.4 lbs 01/13/2025 BMI 36.01 kg/m2 01/13/2025 Oximetry 99 % 01/13/2025 Encounters Encounter Location Date Provider Diagnosis [facility] [address] [place] [address] 01/13/2025 SUYAPA SANDOVAL Adult general medica l exam Z00.00 ; Hyperlipidemia, unspecified E78.5 ; Vitamin D deficiency, unspecified E55.9 ; Hypothyroidism, unspecified type E03.9 ; Diabetes mellitus screening Z13.1 and Anemia due to vitamin B12 deficiency, unspecified B12 deficiency type D51.9 ASSESSMENTS Encounter Date Diagnosis Assessment Notes Treatment Notes Treatment Clinical Notes Section Notes 01/13/2025 Adult general medical exam (ICD-10 - [...] log exercise and discussed fitness Apps like Dobango which can help keep log off calories [...] Dictation was accomplished with the use of [employer] voice recognition software, prone to medical misidentifications [...] next visit it any questions/concerns arise. 01/13/2025 Hyperlipidemia , unspecified (ICD-10 - E78.5) [...] log exercise and discussed fitness Apps like Dobango which can help keep log off calories [...] Dictation was accomplished with the use of [employer] voice recognition software, prone to medical misidentifications [...] log exercise and discussed fitness Apps like Dobango which can help keep log off calories [...] appropriate. Case discussed with collaborating physician Sadie aGrner who reviewed the assessment and plan. Chart, medications, labs, vital signs reviewed. Dictation was accomplished with the use of [employer] voice recognition software, prone to medical misidentifications [...] log exercise and discussed fitness Apps like Dobango which can help keep log off calories [...] Dictation was accomplished with the use of [employer] voice recognition software, prone to medical misidentifications [...] next visit it any questions/concerns arise. 01/13/2025 Diabetes mellitus screening (ICD-10 - Z13.1) [...] log exercise and discussed fitness Apps like [employer] which can help keep log off calories [...] Dictation was accomplished with the use of [employer] voice recognition software, prone to medical misidentifications [...] log exercise and discussed fitness Apps like Dobango which can help keep log off calories [...] Dictation was accomplished with the use of [employer] voice recognition software, prone to medical misidentifications [...] TREATMENT Pending Test Test Name Order Date LIPID PANEL, STANDARD 01/13/2025 COMPREHENSIVE METABOLIC PANEL 01/13/2025 CBC (INCLUDES DIFF/PLT) 01/13/2025 URINALYSIS, COMPLETE 01/13/2025 VITAMIN B12 01/13/2025 VITAMIN D,25-OH,TOTAL,IA 01/13/2025 Hemoglobin [id number] 01/13/2025 TSH+T3+Free T4+T3 Free 01/13/2025 Next Appt Details Provider Name:SUYAPA SANDOVAL, 02/02/2025 02:30:00 PM, [address], [place], [address], Progress Notes * JENNIFER GEORGEDOB:1995 ( 29 yo F)Acc No.[id number]:01/13/2025 CPE Patient:??JENNIFER GEORGE Provider:??SUYAPA SANDOVAL PA-C :1995?Age:29 Y?Sex:Fe male Date:01/13/2025 Address[address], [place] Subjective: * Chief Complaints: * ?1. Pt is here for asha al checkup-no labs done. * HPI: ?Constitutional:? Milli is a pleasant 29-year-old female who presents today for full physical exam past medical history allergies surgical history hospitalizations updated and reviewed with the patient. Patient is requesting a weight management consult due to the lack of weight loss since October of 2024. She has been implementing the same weight loss techniques from the past, counting macros and implementing exercise, which she lost 20 lbs on the same diet and now is not working. She reports lack of exercise and walk minimally during the winter with her dogs. Patient reports that she is overall doing well on the bupropion and has not noticed a significant difference. Headaches have improved since last visit and uses Excedrin as needed for acute episodes. She is up-to-date with all screening exams and is due for annual labs. She has no other concerns at this time. * ROS:?Constitutional: Patient denies any excessive fatigue with exercise, no weight loss, no fever, no night sweats, no changes in sleep ???Cardiovascular: No chest pain, no dyspnea on exertion, no PND, no orthopnea, no irregular pulse, no palpitations, no claudication, no diaphoresis, no claudication. ???Respiratory: No chronic cough, no hemoptysis, no sputum, no wheezing, no SOB, no pleuritic pain. ???Neurological: No history of seizures, no memory loss, no language dysfunction, no inability to concentrate, no localized weakness, no sensation loss, no confusion, no dizziness, no tremor, no numbness, no tingling. ???Psychiatric: + anxiety, + depression, no suicidal thoughts, feels safe at home. * Medical History:??Juan' s disease, Anxiety, Depression, Seasonal allergies, Obesity (BMI 30-39.9). * Surgical History:??child bir th 03/07/2022. * Family History:??Father: eunice ve 68 yrs, diagnosed with Diabetes mellitus without mention of complication, type II or unspecified type, not stated as uncontrolled, Other malignant neoplasm of unspecified site.??Mother: alive 65 yrs.??1 sister(s) . 1 daughter(s) - healthy. .?? father has hx of DM and testicular cancer (40) mother has hx of hypothyroidism and hyperlipidemia sister has hx of hypothyroidism and hashimotos 1 child- 18 months old. 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 * Medications:??Taking Cetiriz ine HCl 10 MG Tablet 1 tablet Orally Once a day , Taking Drospiren-Eth Estrad-Levomefol 3-0.02-0.451 MG Tablet TAKE 1 TABLET BY MOUTH EVERY DAY Oral , Taking Albuterol Sulfate HFA 108 (90 Base) MCG/ACT Aerosol Solution Inhalation , Taking buPROPion HCl ER (XL) 150 MG Tablet Extended Release 24 Hour TAKE 1 TABLET BY MOUTH EVERY DAY IN THE MORNING FOR 90 DAYS , Taking buPROPion HCl ER (XL) 300 MG Tablet Extended Release 24 Hour TAKE 1 TABLET BY MOUTH EVERY DAY IN THE MORNING FOR 90 DAYS , Taking Levothyroxine Sodium 75 MCG Tablet TAKE 1 TABLET BY MOUTH EVERY DAY IN THE MORNING ON EMPTY STOMACH , Discontinued Jayne , Discontinued Topiramate 25 MG Tablet 1 tablet Orally bedtime , Medication List reviewed and reconciled with the patient * Allergies:??Penicillin: hive s, Sulfa Antibiotics: hives. Objective: * Vitals:??HR:99/min, BP:126/8 0mm Hg, Wt:216.4lbs, BMI:36.01Index, Ht: 65 in, Oxygen sat %:99%. * Physical Examination:?General: Age appropriate F, well appearing, no acute distress, speaking in full sentences without respiratory compromise. Well groomed, well developed. ?Skin: Warm, dry and intact. No lesions/rashes. ?HEENT: Normocephalic/atraumatic. EOMI intact. PERRLA. Vision intact. No ptosis or lid lag. Nares without discharge or inflammation. Oral cavity free of plaques or exudates. Dentition well maintained. No pharyngeal erythema. ?Neck/Thyroid: Supple, with no lymphadenopathy. No carotid artery bruits auscultated. Thyroid free of nodules. Nonenlarged ?Lung: Clear to auscultation bilaterally, no wheezes, rales or rhonchi. No barrel chest. ?Cardiac: S1 and S2 appreciated. No murmurs/rubs or gallops. DP pulses intact 2+ bilaterally. ?Abdomen: Soft, nontender, normoactive bowel sounds. No rebound/guarding. No CVA tenderness. ?Extremities: Bilateral lower extremities with no edema or rubor. No evidence of varicose veins. ?MSK: Bilateral upper and lower extremities 5/5 strength with flexion/extension. Multiple Slide Operator strength 5/5. ?Neuro: CN II-XI grossly intact. Steady gait with ambulation observed. ?Psych: Stable mood and affect. Assessment: * Assessment: 1.??Adult general medical ex am - Z00.00 (Primary)??2.??Hyperlipidemia, unspecified - E78.5??3.??Vitamin D deficiency, unspecified - E55.9??4.??Hypothyroidism, unspecified type - E03.9??5.??Diabetes mellitus screening - Z13.1??6.??Anemia due to vitamin B12 deficiency, unspecified B12 deficiency type - D51.9?? #Adult general medical exam: Reviewed medical history, [...] log exercise and discussed fitness Apps like Dobango which can help keep log off calories [...] Dictation was accomplished with the use of [employer] voice recognition software, prone to medical misidentifications and grammatical errors. This is unintentional and the practitioner does try to identify and correct these, but some could still be present. Please do not hesitate to contact practitioner for clarification. All questions answered to patients satisfaction. Patient verbalized understanding of diagnosis and treatments explained. To call sooner prior to next visit it any questions/concerns arise. Plan: * Treatment: 2.??Hyperlipidemia, unspecif ied?LAB: LIPID PANEL, STANDARD 3.??Vitamin D deficiency, un specified?LAB: VITAMIN D,25-OH,TOTAL,IA 4.??Hypothyroidism, unspecif ied type?LAB: TSH+T3+Free T4+T3 Free 5.??Diabetes mellitus screen ing?LAB: Hemoglobin [id number] 6.??Anemia due to vitamin B1 2 deficiency, unspecified B12 deficiency type?LAB: VITAMIN B12 * Images: Billing Information: * Visit Code:?? 16607 Preventive Care Est Pt. Age 18-39. Modifiers: SA * Procedure Codes:?? Care Plan Details* * Sign off status: Completed true * Provider:??SUYAPA SANDOVAL PA-C Date:??01/2025 History and Physical Notes * HPI (History of Present Illness) Category Sub-Category Detail Notes Category Not es Constitutional Milli is a pleasant 29-year-old female who presents today for full physical exam past medical history allergies surgical history hospitalizations updated and reviewed with the patient. Patient is requesting a weight management consult due to the lack of weight loss since October of 2024. She has been implementing the same weight loss techniques from the past, counting macros and implementing exercise, which she lost 20 lbs on the same diet and now is not working. She reports lack of exercise and walk minimally during the winter with her dogs. Patient reports that she is overall doing well on the bupropion and has not noticed a significant difference. Headaches have improved since last visit and uses Excedrin as needed for acute episodes. She is up-to-date with all screening exams and is due for annual labs. She has no other concerns at this time. Physical Examination Category Sub-Category Detail Notes Section Note s General: Age appropriate F, well appearing, no acute distress, speaking in full sentences without respiratory compromise. Well groomed, well developed. Skin: Warm, dry and intact. No lesions/rashes. HEENT: Normocephalic/atraumatic. EOMI intact. PERRLA. Vision intact. No ptosis or lid lag. Nares without discharge or inflammation. Oral cavity free of plaques or exudates. Dentition well maintained. No pharyngeal erythema. Neck/Thyroid: Supple, with no lymphadenopathy. No carotid artery bruits auscultated. Thyroid free of nodules. Nonenlarged Lung: Clear to auscultation bilaterally, no wheezes, rales or rhonchi. No barrel chest. Cardiac: S1 and S2 appreciated. No murmurs/rubs or gallops. DP pulses intact 2+ bilaterally. Abdomen: Soft, nontender, normoactive bowel sounds. No rebound/guarding. No CVA tenderness. Extremities: Bilateral lower extremities with no edema or rubor. No evidence of varicose veins. MSK: Bilateral upper and lower extremities 5/5 strength with flexion/extension. Multiple Slide Operator strength 5/5. Neuro: CN II-XI grossly intact. Steady gait with ambulation observed. Psych: Stable mood and affect
--- OUTSIDE RECORDS SUMMARY | 2025-02-01 06:32 | XMS_ITS | Clinical Summary ---
Author Organization [facility] Address [address] [place] [address] Phone Care Team Providers Care Folder Hand Name Role Phone Paulo Garner MD Primary Care Provider [phone] Allergies Active Allergy Reactions Criticality Noted Date Comments Penicillin Hives 09/28/2024 Sulfa (Sulfonamide Antibiotics) Hives High 01/11 Medications albuterol HFA (PROAIR HFA ; PROVENTIL HFA ; VENTOLIN HFA) 90 mcg/actuation inhaler Inhalation for 90 Days Active buPROPion SR (WELLBUTRIN SR) 150 mg 12 hr tablet Take 1 tablet (150 mg total) by mouth 2 (two) times a day. 3 Active cetirizine (ZyrTEC) 10 mg tablet 1 tablet (10 mg total) 1 (one) time each day at the same time. Active drospirenone-et hinyl estradiol-levom efolate calcium (BEYAZ,MEREDITH) 3-0.02-0.451 mg (24) (4) per tablet Take 1 tablet by mouth 1 (one) time each day. 4 Active fluticasone propionate (FLONASE) 50 mcg/actuation nasal spray Administer 2 sprays into affected nostril(s). Active levothyroxine (SYNTHROID, LEVOTHROID) 75 mcg tablet TAKE 1 TABLET BY MOUTH EVERY DAY IN THE MORNING ON EMPTY STOMACH for 90 Active topiramate (TOPAMAX) 25 mg tablet 1 tablet (25 mg total). 4 Active buPROPion XL (FORFIVO XL) 450 mg 24 hr tablet Take 1 tablet (450 mg total) by mouth 1 (one) time each day. Do not crush, chew, or split. Active Active Problems Problem Noted Date Diagnosed Date Thumb pain, left 11/18/2022 Maternal varicella, non-immune 09/08/2021 Overview (09/28/2024): Vaccinate PP Anxiety and depression 08/19/2021 Overview (09/28/2024): Pt currently takes wellbutrin 150mg BID . Doing well - NO SI/SA Declines referral to [facility]/therapy. 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 Immunizations Name Administration Dates Next Due DTP 10/11/1994, 3,1993,05/11 DTaP 5 pertussis antigens, D iptheria Tetanus acellular pertussis (Daptacel) 6wks to less than 7yo 05/11/1998 Hepatitis B Pediatric (Enger ix B; Recombivax HB) to less than 20 yo 01/09/1994,1993,1993 HiB PRP-T conjugate (Acthib, Hiberix) 6wks and older 07/11/1994,1993,1993,05/11 IPV Inactivated polio (Ipol) 6wks and older 05/11/1998,10/11/1994,1993,05/11 Influenza Quadravalent, MDCK , 0.5ml, preservative free (Flucelvax) 6mo and older 12/29/2022 Influenza Quadrivalent, 0.5m l, preservative free (Fluarix; FluLaval; Fluzone) ages 6mo and older (Afluria) 3yo and older 08/24/2021 Influenza Split 07/13/2012 MMR, measles mumps and rubel la Live (Priorix; M-M-R II) 12mo and older 05/11/1998,07/11/1994 Meningococcal MCV4P 11/02/2006 [employer] SARS-CoV-2 COVID-19, mRNA, LNP-S, preservative free 08/14/2021 Td Tetanus diptheria (Tdvax) 7yo and older 10/02/2004 Tdap Tetanus diptheria acell ular pertussis (Boostrix; Adacel) 7yo and older 12/27/2021,04/17/2010 Varicella live (Varivax) 12m o and older 03/07/2022,01/17/2008,04/10/1996 Surgical History Surgery Date Site/Laterality Comments OTHER SURGICAL HISTORY PROCEDURE: DENIES PREVIOUS SURGERY Medical History Medical History Date Comments Asthma DX:Asthma Migraine DX:Migraine Anxiety and depression DX:Anxiet y and depression Obesity DX:Obesity Hypothyroidism DX:Hypothyroidis m Gestational hypertension 03/05/2022 DX:Gest ational hypertension Family History Medical History Relation Name Comments Diabetes Father Hypertension Father Other cancer Father testicular Hyperthyroidism Maternal Grandfather Stroke Maternal Grandfather Thyroid disease Mother Thyroid disease Sister Breast cancer Neg Hx Colon cancer Neg Hx Ovarian cancer Neg Hx Prostate cancer Neg Hx Relation Name Status Comments Father Maternal Grandfather Mother Sister Social History Tobacco Use Types Packs/Day Years Used Date Smoking Tobacco: Never Smokeless Tobacco: Never Alcohol Use Standard Drinks/Week Comments Yes 0 (1 standard drink = 0.6 oz pur e alcohol) Comments Unknown Sex and Gender Information Value Date Recorded Sex Assigned at Female 09/23/2024 4:18 PM EST Legal Sex Female 11:45 PM EST Gender Identity Female 09/23/2024 4:18 PM EST Sexual Orientation Straight 09/23/2024 4: 18 PM EST Obstetrics History Last Filed Vital Signs Vital Sign Reading Time Taken Comments Blood Pressure 124/84 07/19/2024 8:32 AM EDT Pulse 82 07/19/2024 8:32 AM EDT Temperature - - Respiratory Rate - - Oxygen Saturation - - Inhaled Oxygen Concentration - - Weight 94.8 kg (209 lb) 07/19/2024 8:32 AM EDT Height 162.6 cm (5' 4 ) 07/19/2024 8:32 AM EDT Body Mass Index 35.87 07/19/2024 8:32 AM EDT Plan of Treatment Health Maintenance Due Date Last Done Comments Cholesterol Screening (Lipid Panel) 09/14/2022 Depression Screening 09/14/2022 HIV Screening 09/14/2022 Hepatitis C Screening 09/14/2022 Social Influencers of Health Screening 09/14/2022 COVID-19 Vaccine ( season) 2024 08/14/2021, 08/02/2021, 11/16/2020, Additional history exists Influenza Vaccine (Season Ended) 2025 12/29/2022, 08/24/2021, 07/13/2012 Cervical Cancer Screening: Pap Smear 07/19/2027 07/19/2024, 09/06/2021, 03/25/2018, Additional history exists DTaP,Tdap,and Td Vaccines (9 - Td or Tdap) 12/28/2031 12/27/2021, 04/17/2010, 10/02/2004, Additional history exists Hepatitis B Vaccines Completed 01/09/1994, 1993, 1993 HIB Vaccines Completed 07/11/1994, 09/13, 1993, Additional history exists IPV Vaccines Completed 05/11/1998, 09/13, 1993, Additional history exists MMR Vaccines Completed 05/11/1998, 07/11/1994 Meningococcal ACWY Vaccine Aged Out 11/02/2006 N o longer eligible based on patient's age to complete this topic Varicella Vaccines Completed 03/07/2022, 0 01/17/2008, 04/10/1996 HPV Vaccines Aged Out No longer eligi ble based on patient's age to complete this topic Hepatitis A Vaccines Aged Out No long er eligible based on patient's age to complete this topic Meningococcal B Vaccine Aged Out No l onger eligible based on patient's age to complete this topic Pneumococcal Vaccine: Pediatrics (0 to 5 Years) and At-Risk Patients (6 to 64 Years) Aged Out No longer eligible based on patient's age to complete this topic RSV Immunization Patients Under 20 months Aged Out No longer eligible based on patient's age to complete this topic Procedures Procedure Name Priority Date/Time Associated Diagnosis Comments PAP SMEAR Routine 07/19/2024 from Last 3 Months or Most Recently Relevant to Health Maintenance Results * Pap smear (07/19/2024) 07/19/2024 Narrative HISTORICAL TESTING LAB RESULTING AGENCY - 07/25/2024 10:46 AM EDT [id number] THINPREP PAP, IMAGED: NEGATIVE FOR SQUAMOUS INTRAEPITHELIAL LESION AND MALIGNANCY PASTOR ROJAS , CHRISTO(ASCP) (CASE ELECTRONICALLY SIGNED 07 25 2024) RESULT OF APTIMA HIGH RISK HPV ASSAY: HIGH RISK HPV: ??NEGATIVE (SEROTYPES 16,18,31,33,35,39,45,51,52,56,58,59,66,68) COMPLETED ON 2024-07-20 ADEQUACY: SATISFACTORY ENDOCERVICAL/TRANSFORMATION ZONE COMPONENT PRESENT. SOURCE: THINPREP PAP HPV ANY DX: ??REFLEX 16 AND 18, CERVICAL, IMAGED CLINICAL INFORMATION: HPV ANY DIAGNOSIS. HORMONES, PAP HX NEGATIVE, LMP 07/09/24, [Z01.419 ENCOUNTER FOR GYNECOLOGICAL EXAMINATION (GENERAL) (ROUTINE) WITHOUT ABNORMAL FINDINGS] [facility] CYTOLOGY ORDERABLES Final Result HISTORICAL TESTING LAB RESULTING AGENCY from Last 3 Months or Most Recently Relevant to Health Maintenance Insurance [facility] Care Teams Folder Hand Relationship Specialty Start Date End Date Paulo Garner MD [facility] - General 07/18/24
[2025-02-01 06:46] LABS: MANUAL DIFF FLAG NO
[2025-02-01 07:23] LABS: Basophils Percent Auto 0.5 % (0-2); Eosinophils Absolute Auto 0.1 X10*3/uL (0.0-0.4); Eosinophils Percent Auto 2.4 % (0-4); Hematocrit 34.9 % (37.0-47.0); Hemoglobin 11.7 g/dl (12.0-16.0); Imm Gran Abs Auto 0.02 X10*3/uL (0.00-0.03); Imm Gran Pct Auto 0.3 % (0.0-0.4); Lymphocytes Absolute Auto 2.1 X10*3/uL (1.2-4.9); Lymphocytes Percent Auto 35.6 % (20-40); Mean Corpuscular HGB Conc 33.5 g/dl (31.0-35.0); Mean Corpuscular Hemoglobin 28.3 pg (27.0-33.0); Mean Corpuscular Volume 84.3 fL (80.0-98.0); Mean Platelet Volume 9.4 fL (9.4-12.3); Monocytes Absolute Auto 0.4 X10*3/uL (0.1-1.2); Monocytes Percent Auto 7.2 % (2-11); Neutrophils Absolute Auto 3.2 x10*3/uL (2.0-8.3); Platelet Count 319 X10*3/uL (160-400); Red Blood Count 4.14 X10*6/uL (4.20-5.50); Red Cell Distribution Width 12.6 % (11.0-16.0)
[2025-02-01 07:36] LABS: Estimated Average Glucose 103 mg/dL; Hemoglobin A1C 100.9342 umol/L; Hemoglobin A1c % 5.2 % (<6.0); Total Hemoglobin (HGBA1C) 3064.5396 umol/L
[2025-02-01 08:00] LABS: Alanine Aminotransferase 17 U/L (0-31); Albumin Level 3.8 g/dL (3.5-5.0); Alkaline Phosphatase 71 U/L (39-117); Anion Gap 10 (12-20); Aspartate Amino Transferase 19 U/L (5-31); Bilirubin Total 0.3 mg/dL (0.0-1.0); Blood Urea Nitrogen 14 mg/dL (9-16); Calcium 8.7 mg/dL (8.4-10.2); Carbon Dioxide 26 mmol/L (22-29); Chloride 107 mmol/L (96-108); Cholesterol 156 mg/dL (<200); Estimated Glomerular Filt Rate > 60; Glucose Random 99 mg/dL (60-115); HDL Cholesterol 73 mg/dL (>40); LDL Cholesterol Calculated 66 mg/dL (<100); Potassium 3.8 mmol/L (3.3-5.1); Sodium 139 mmol/L (135-145); Total Protein 6.5 g/dL (6.5-8.0); Triglycerides 87 mg/dL (<150)
[2025-02-01 08:16] LABS: Vitamin B12 357 pg/mL (200-900)
[2025-02-01 08:17] LABS: Free T4 (Free Thyroxine) 1.06 ng/dL (0.71-1.85); Thyroid Stimulating Hormone 3.62 uIU/mL (0.32-4.0); Vitamin D 25-OH Total 44.2 ng/mL (>30)
[2025-02-02 08:53] LABS: Triiodothyronine T3 Free 2.9 pg/mL (2.3-4.2); Triiodothyronine T3 Total 107 ng/dL (76-181)
== END 2025-02-01 06:29 | disposition home or self-care (01) ==
LOC: HO.LAB 06:28
PROVIDERS: PCP Physician Assistant Medical; Visit Provider Physician Assistant Medical
DX: Z00.00 Encounter for general adult medical examination without abnormal findings (principal); E78.5 Hyperlipidemia, unspecified; E55.9 Vitamin D deficiency, unspecified; E03.9 Hypothyroidism, unspecified; Z13.1 Encounter for screening for diabetes mellitus
CPT/HCPCS: 36415; 80053; 80061; 82306; 82607; 83036; 84439; 84443; 84480; 84481; 85025